=== PATIENT | male | born 1950 | race African-American/Black ===

== ENCOUNTER 2018-06-21 09:06 | Outpatient (CLI) | payer MEDICARE, SELFPAY ==
--- NOTE | 2018-06-21 11:06 | PRG ---
DATE OF SERVICE: 06/21/2018 CHIEF COMPLAINT: Bilateral foot wounds. HISTORY OF PRESENT ILLNESS: A 67-year-old male who presents today with wounds on bilateral lateral feet started about 4 weeks ago. He states that they started after wearing some rubber boots that rubbed abrasions on the side of his foot and feels that continued use of shoes has preventing the wound from healing. Has been applying mupirocin ointment and leaving open to the air. PAST MEDICAL HISTORY/PAST SURGICAL HISTORY/MEDICATIONS/ ALLERGIES/SOCIAL HISTORY /FAMILY HISTORY: Reviewed and is documented in his paper clinic chart. These were reviewed and deemed accurate. PHYSICAL EXAMINATION: VITAL SIGNS: Temperature 97.7, pulse 68, respirations 20, blood pressure 141/ 68. VASCULAR: Dorsalis pedis and posterior tibial pulses are faintly palpable. Skin temperature is cool to the touch. Sluggish capillary fill time to the toes. DERMATOLOGICAL EXAM: On the right foot lateral fifth metatarsal, there is a full thickness wound measuring 2 cm x 5.5 cm x 0.1 cm. It is 50% slough, 50% granulation tissue. There is scant serous drainage, no odor, no periwound erythema, edema, or warmth. In the left lateral foot there is a small ulceration 1 x 1.5 cm x 0.1 cm, 50% slough, 50% granulation tissue, scant serous drainage, no malodor, no periwound erythema, edema or warmth. 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 PLAN: 1. Full thickness debridement of subcutaneous tissue layer removing all nonviable tissue and biofilm from the wound base down to a bleeding granular wound base. The patient tolerated the procedure well. 2. Start him on collagen dressing changes on a daily basis with secondary gauze and tape bandage. 3. He has had his circulation checked recently with noninvasive vascular testing and he was told that his blood flow was deemed adequate for healing purposes. 4. The patient will follow up with me in 1 week. ATIF
== END 2018-06-21 09:07 | disposition home or self-care (01) ==
LOC: WCC 09:06
PROVIDERS: ATTEND Podiatrist Foot & Ankle Surgery
DX: L97.529 Non-pressure chronic ulcer of other part of left foot with unspecified severity (principal); L97.519 Non-pressure chronic ulcer of other part of right foot with unspecified severity; S90.812D Abrasion, left foot, subsequent encounter; S90.811D Abrasion, right foot, subsequent encounter
CPT/HCPCS: 11042; 99203; G0463

== ENCOUNTER 2018-07-05 09:14 | Outpatient (CLI) | payer MEDICARE ==
--- NOTE | 2018-07-05 12:28 | PRG ---
DATE OF SERVICE: 07/05/2018 SUBJECTIVE: A 67-year-old male returns today for followup of bilateral lateral foot wounds. No acut e events since last visit. He presented today with the right foot being open to air and left foot wi th a Band-Aid and he had been putting some Triple Antibiotic ointment and has not received his dressi ng supplies. PHYSICAL EXAMINATION: Ulceration of the right lateral foot measuring 2 cm x 6.5 cm x 0.1 cm, it is 5 0% slough, 50% granulation tissue and covered in biofilm. No malodor, no periwound erythema, edema o r warmth. Left foot lateral midfoot measures 1.5 cm x 5 cm x 0.1 cm, 50% slough, 50% granulation tis sheron. No malodor. No periwound erythema, edema or warmth. ASSESSMENT: Non-pressure chronic ulcerations to bilateral mid feet on the lateral aspect of the foot . PLAN: Full thickness debridement subcutaneous tissue layer removing all nonviable tissue and biofilm from the wound base today. Sending some tissue samples for culture and sensitivity to rule out bact erial colonization and determine if there is some topical antibiotics we can use to help prevent thi s. The wounds appear moist today, so we want to start drying them. We are going to start using a si lver alginate dressing on him. The patient will return in 1 week for followup.
[2018-07-05] MEDS ORDERED: Sodium Chloride 0.9% 15 ML NEB ONE (15:44)
== END 2018-07-05 09:15 | disposition home or self-care (01) ==
LOC: WCC 09:14
PROVIDERS: ATTEND Podiatrist Foot & Ankle Surgery
DX: L97.529 Non-pressure chronic ulcer of other part of left foot with unspecified severity (principal); L97.519 Non-pressure chronic ulcer of other part of right foot with unspecified severity
CPT/HCPCS: 87070; 87077; 87205; A4218

== ENCOUNTER 2018-07-12 09:29 | Outpatient (CLI) | payer MEDICARE ==
--- NOTE | 2018-07-12 10:47 | PRG ---
DATE OF SERVICE: 07/12/2018 SUBJECTIVE: This 57-year-old male returns today for followup of bilateral lateral foot wounds. He h as been using Promogran and a large Band-Aid daily. PHYSICAL EXAMINATION: Right lateral foot measures 2 cm x 6 cm x 0.1 cm, 80% epithelium, 20% granula tion tissue with an immense amount of biofilm on the wound surface. Left foot lateral wound measures 1 cm x 4 cm x 0.1 cm, 25% slough 75% epithelium, a large amount of dense biofilm on the wound surfac e. Minimal serosanguineous drainage. No periwound erythema, edema or warmth. ASSESSMENT: Non-pressure chronic ulceration bilateral feet. PLAN: 1. Full thickness debridement of subcutaneous tissue layer removing all nonviable tissue and biofilm from the wound bases down to a bleeding granular wound base. Bandage was reapplied with Promogran a nd gauze dressings. 2. Going to order the patient anti-infective antibiotic foot bath from [facility] for him to do twice daily. He also continue changing dressing with Promogran every day. He will follow up with me in 2 weeks.
[2018-07-12] MEDS ORDERED: Sodium Chloride 0.9% 15 ML NEB ONE (18:36)
== END 2018-07-12 09:30 | disposition home or self-care (01) ==
LOC: WCC 09:29
PROVIDERS: ATTEND Podiatrist Foot & Ankle Surgery
DX: L97.529 Non-pressure chronic ulcer of other part of left foot with unspecified severity (principal); L97.519 Non-pressure chronic ulcer of other part of right foot with unspecified severity
CPT/HCPCS: 11042; A4218

== ENCOUNTER 2018-07-26 10:04 | Outpatient (CLI) | payer MEDICARE ==
[~2018-07-26 10:04] MED LIST: Sodium Chloride 0.9% 15 ML NEB ONE
--- NOTE | 2018-07-26 23:44 | PRG ---
DATE OF SERVICE: 07/26/2018 WOUND CLINIC NOTE SUBJECTIVE: A 67-year-old male returns today for followup of bilateral lateral foot wounds, just received his foot soaks on Sunday and has just started using them. Has been using Promogran dressing changes on a daily basis. No acute events since last visit. OBJECTIVE: Wounds persist measuring 5.5 cm x 1.5 cm on the left foot and 6.5 cm x 2 cm on the right foot. These are covered in a thick biofilm like covering. There is about 50% granulation tissue, 50% slough. No periwound erythema, edema, or warmth. ASSESSMENT: Non-pressure chronic ulcerations to bilateral feet. PLAN: 1. Full-thickness debridement of the subcutaneous tissue layer, removing all nonviable tissue and biofilm from the wound base down to bleeding glanular wound base. 2. We would like him to continue with the foot soaks on a daily basis and daily Promogran dressing changes. 3. These wounds have a strange appearance and they are not responding the way that I would expect. I am going to refer him to computer console operator for further evaluation. He will follow up with me in 2 weeks. Job ID: [id number]
== END 2018-07-26 10:05 | disposition home or self-care (01) ==
LOC: WCC 10:04
PROVIDERS: ATTEND Podiatrist Foot & Ankle Surgery
DX: L97.529 Non-pressure chronic ulcer of other part of left foot with unspecified severity (principal); L97.519 Non-pressure chronic ulcer of other part of right foot with unspecified severity
CPT/HCPCS: A4218

== ENCOUNTER 2018-08-09 09:37 | Outpatient (CLI) | payer MEDICARE ==
--- NOTE | 2018-08-09 15:19 | HP ---
WOUND CLINIC NOTE SUBJECTIVE: A 67-year-old male returns today for bilateral lateral foot skin lesions. The patient presents today with wounds open to the air and no bandages applied. He states he has been doing his foot soaks and using the Aquacel Ag. He has not received his Dermatology appointment. We did contact them and get that appointment set today, said they were unable to get whole of them on his home number. PHYSICAL EXAMINATION: EXTREMITIES: Left foot lateral wound measured 1 cm x 5 cm x 0.1 cm, 75% epithelium and 25% granulation tissue. Some scant serous drainage. No malodor. Appears similar in appearance to last week. Right foot wound does appear improved, measuring 1 cm x 6 cm x 0.1 cm, 50% granulation tissue, 50% epithelium. ASSESSMENT: Non-pressure chronic ulcerations to the lateral feet/unknown skin lesion. PLAN: I am going to continue with treatment plan today. I am trying to use a different alginate to see if we can absorb some more moisture from the wounds. Still I would like to have some clarification as to what this could be caused by and so want him to keep his Dermatology appointment. Job ID: [id number]
== END 2018-08-09 09:38 | disposition home or self-care (01) ==
LOC: WCC 09:37
PROVIDERS: ATTEND Podiatrist Foot & Ankle Surgery
DX: L97.529 Non-pressure chronic ulcer of other part of left foot with unspecified severity (principal)
CPT/HCPCS: A4218

== ENCOUNTER 2018-08-16 09:54 | Outpatient (CLI) | payer MEDICARE ==
--- NOTE | 2018-08-16 17:20 | PRG ---
DATE OF SERVICE: 08/16/2018 SUBJECTIVE: A 68-year-old male returns today for followup of bilateral foot skin lesions. This is relatively unchanged from last week. He denies any acute events. No nausea, vomiting, fevers, or chills. OBJECTIVE: Lesions remain hyperkeratotic in nature with some hypergranulation measuring 2 cm x 7.3 cm x 0.1 cm on the right, 1.8 x 9.2 x 0.1 on the left. Less macerated and less moist on this visit. No periwound erythema, edema, or warmth. ASSESSMENT: Non-pressure chronic ulcerations, limited breakdown of the skin, and unknown skin lesions to bilateral feet. PLAN: I am still little unclear on the etiology of these lesions. We are waiting for him to have his appointment with Dermatology to get a better diagnosis. I will have him follow up with me after his appointment with the video operator unless he has any problems before that time. Job ID: [id number]
== END 2018-08-16 09:55 | disposition home or self-care (01) ==
LOC: WCC 09:54
PROVIDERS: ATTEND Podiatrist Foot & Ankle Surgery
DX: L97.511 Non-pressure chronic ulcer of other part of right foot limited to breakdown of skin (principal); L97.521 Non-pressure chronic ulcer of other part of left foot limited to breakdown of skin; L98.9 Disorder of the skin and subcutaneous tissue, unspecified

== ENCOUNTER 2020-11-08 09:51 | Outpatient (CLI) | payer MEDICARE ==
[2020-11-09 01:26] LABS: SARS-CoV-2 PCR by NAA Not Detected (NotDetected)
== END 2020-11-08 09:52 | disposition home or self-care (01) ==
LOC: LABBT 09:51
PROVIDERS: ATTEND Internal Medicine Gastroenterology
DX: Z20.822 Contact with and (suspected) exposure to COVID-19 (principal)
CPT/HCPCS: U0003; U0005; 87635

== ENCOUNTER 2020-12-07 12:01 | Outpatient (CLI) | payer MEDICARE ==
[2020-12-08 01:19] LABS: SARS-CoV-2 PCR by NAA Not Detected (NotDetected)
== END 2020-12-07 12:02 | disposition home or self-care (01) ==
LOC: LABBT 12:01
PROVIDERS: ATTEND Internal Medicine Gastroenterology
DX: Z01.812 Encounter for preprocedural laboratory examination (principal); Z12.11 Encounter for screening for malignant neoplasm of colon; I82.409 Acute embolism and thrombosis of unspecified deep veins of unspecified lower extremity; R14.0 Abdominal distension (gaseous); E66.9 Obesity, unspecified; G47.30 Sleep apnea, unspecified; N18.9 Chronic kidney disease, unspecified; Z79.01 Long term (current) use of anticoagulants
CPT/HCPCS: U0003; U0005; 87635

== ENCOUNTER 2020-12-10 05:55 | Day surgery (SDC) | payer MEDICARE ==
[2020-12-09 10:07] VITALS: BMI 49.6
[2020-12-10] MEDS ORDERED: Lidocaine 1% PF 5 ML VIAL ONE (07:45)
[2020-12-10] MEDS ORDERED: PROPOFOL 200 MG/20 ML VIAL ONE (07:45)
[2020-12-10] MEDS ORDERED: EPINEPHrine 1 MG/10 ML Abboject SYRINGE ONE (07:45)
== END 2020-12-10 11:12 | disposition home or self-care (01) ==
LOC: SDC 05:55
PROVIDERS: ATTEND Internal Medicine Gastroenterology
PROC: 0DB58ZX Excision of Esophagus, Via Natural or Artificial Opening Endoscopic, Diagnostic (ICD-10-PCS; principal; 2020-12-10)
PROC: 0DBM8ZX Excision of Descending Colon, Via Natural or Artificial Opening Endoscopic, Diagnostic (ICD-10-PCS; 2020-12-10)
PROC: 0DBL8ZX Excision of Transverse Colon, Via Natural or Artificial Opening Endoscopic, Diagnostic (ICD-10-PCS; 2020-12-10)
PROC: 0DBN8ZX Excision of Sigmoid Colon, Via Natural or Artificial Opening Endoscopic, Diagnostic (ICD-10-PCS; 2020-12-10)
DX: Z12.11 Encounter for screening for malignant neoplasm of colon (principal); D12.3 Benign neoplasm of transverse colon; D12.4 Benign neoplasm of descending colon; D12.5 Benign neoplasm of sigmoid colon; D01.0 Carcinoma in situ of colon; K57.30 Diverticulosis of large intestine without perforation or abscess without bleeding; K29.50 Unspecified chronic gastritis without bleeding; K44.9 Diaphragmatic hernia without obstruction or gangrene; B96.81 Helicobacter pylori [H. pylori] as the cause of diseases classified elsewhere; K64.9 Unspecified hemorrhoids; K64.8 Other hemorrhoids
CPT/HCPCS: 88305; J0171; J2704

== ENCOUNTER 2021-01-28 11:51 | Outpatient (CLI) | payer MEDICARE ==
[2021-01-28 13:30] LABS: #Eosinphils 0.3 10x3/uL (0.0-0.5); #Monocytes 0.7 10x3/uL (0.0-1.1); #Neutrophils 3.3 10x3/uL (1.5-8.4); %Basophils 0.5 % (0.0-2.0); %Eosinophils 4.4 % (0.0-6.0); %Lymphocytes 29.2 % (18.0-47.0); %Monocytes 11.6 % (0.0-10.0); Hemoglobin 12.8 g/dL (13.5-17.5); Mean Corpuscular Hemoglobin 28.4 pg (27.0-33.0); Mean Corpuscular Volume 88.7 fl (81.2-95.1); Mean Platelet Volume 9.2 fl (7.4-10.4); Platelet Count 208 10x3/uL (150-450); RBC Distribution Width 13.3 % (11.5-14.5); Red Blood Cell (RBC) Count 4.51 10x6/uL (4.32-5.72); White Blood Cell (WBC) Count 6.2 10x3/uL (3.5-10.5)
[2021-01-28 13:47] LABS: ALT (SGPT) 13 U/L (8-55); AST (SGOT) 14 U/L (5-34); Albumin 3.7 g/dL (3.4-4.8); Alkaline Phosphatase 71 U/L (40-110); Anion Gap 8 mmol/L (10-20); BUN (Urea Nitrogen) 10 mg/dL (8.4-25.7); Bilirubin, Total 0.7 mg/dL (0.2-1.2); Calc. Creatinine Clearance 0 mL/min (70-130); Calcium 9.1 mg/dL (7.8-10.44); Carbon Dioxide 29 mmol/L (23-31); Chloride 110 mmol/L (98-107); Globulin 3.2 g/dL (2.4-3.5); Glucose 100 mg/dL (83-110); Protein, Total 6.9 g/dL (5.8-8.1); Sodium 143 mmol/L (136-145)
[2021-01-28 16:31] LABS: Hemoglobin A1c 5.9 % (4.0-6.0)
[2021-01-28 20:45] LABS: SARS-CoV-2 PCR by NAA Not Detected (NotDetected)
== END 2021-01-28 11:52 | disposition home or self-care (01) ==
LOC: LABBT 11:51
PROVIDERS: ATTEND Specialist
DX: Z01.818 Encounter for other preprocedural examination (principal); C18.9 Malignant neoplasm of colon, unspecified; N18.9 Chronic kidney disease, unspecified; G47.30 Sleep apnea, unspecified; I48.0 Paroxysmal atrial fibrillation; E66.01 Morbid (severe) obesity due to excess calories; N28.89 Other specified disorders of kidney and ureter; Z79.01 Long term (current) use of anticoagulants
CPT/HCPCS: 71046; 80053; 82378; 83036; 85025; U0003; U0005

== ENCOUNTER 2021-01-28 12:15 | Inpatient (IN) | payer MEDICARE ==
[2021-02-02] MEDS ORDERED: Bupivacaine PF 0.5% 30 ML VIAL ONE (06:32)
[2021-02-02] MEDS ORDERED: Lidocaine 1% w/Epinephrine 1:100K 20 ML VIAL ONE (06:32)
[2021-02-02] MEDS ORDERED: Fentanyl 100 MCG/2 ML VIAL ONE ×3 (06:42→12:54)
[2021-02-02] MEDS ORDERED: Lidocaine 2% Jelly 5 ML TUBE ONE (06:43)
[2021-02-02] MEDS ORDERED: Bupivacaine 0.25% HCL 30 ML VIAL ONE (06:44)
[2021-02-02] MEDS ORDERED: Midazolam HCl 2 mg/2 ml Vial ONE (06:56)
[2021-02-02] MEDS ORDERED: Gabapentin 300 MG CAP ONE (07:00)
[2021-02-02] MEDS ORDERED: Ketorolac Tromethamine 30 MG/ML VIAL ONE (07:25)
[2021-02-02] MEDS ORDERED: Lidocaine 1% (PF) 30 ML VIAL ONE (07:36)
[2021-02-02] MEDS ORDERED: Meropenem 2 GM in Sodium Chloride 0.9% 100 ML IVPB SCH (07:45)
[2021-02-02] MEDS ORDERED: PROPOFOL 200 MG/20 ML VIAL ONE (08:20)
[2021-02-02] MEDS ORDERED: Dexamethasone 20 MG/5 ML VIAL ONE (08:20)
[2021-02-02] MEDS ORDERED: Bupivacaine HCl 0.5%/Epinephrine 1:200,000/PF 30 ml Vial ONE (08:20)
[2021-02-02] MEDS ORDERED: Glycopyrrolate 0.2 MG/ML 5 ML SYRINGE ONE (08:20)
[2021-02-02] MEDS ORDERED: Rocuronium Bromide 10 MG/ML (10ML VIAL) ONE (08:20)
[2021-02-02] MEDS ORDERED: Lidocaine 1% PF 5 ML VIAL ONE (08:20)
[2021-02-02] MEDS ORDERED: Ondansetron PF 4 MG/2 ML Vial ONE (08:20)
[2021-02-02] MEDS ORDERED: ePHEDrine 50 MG/ML VIAL ONE (08:20)
[2021-02-02] MEDS ORDERED: Promethazine HCl 25 MG/ML VIAL SLOW IVP PRN (11:55)
[2021-02-02] MEDS ORDERED: Promethazine HCl 25 MG/ML VIAL IM PRN ×2 (11:55→14:41)
[2021-02-02] MEDS ORDERED: Ondansetron HCl/PF 4 MG/2 ML Vial IVP PRN (11:55)
[2021-02-02] MEDS ORDERED: Ondansetron PF 4 MG/2 ML Vial IVP PRN ×2 (12:24→14:41)
[2021-02-02] MEDS ORDERED: hydrALAZINE 20 MG/ML VIAL SLOW IVP PRN (12:24)
[2021-02-02] MEDS ORDERED: Morphine 4 MG/ML VIAL SLOW IVP PRN ×2 (12:24→12:34)
[2021-02-02] MEDS ORDERED: Morphine 2 MG/ML VIAL SLOW IVP PRN (12:24)
[2021-02-02] MEDS ORDERED: hydrALAZINE 20 MG/ML VIAL ONE (12:53)
[2021-02-02] MEDS ORDERED: diphenhydrAMINE 50 MG/ML VIAL IM PRN (14:41)
[2021-02-02] MEDS ORDERED: diphenhydrAMINE 50 MG/ML VIAL IVP PRN (14:41)
[2021-02-02] MEDS ORDERED: Naloxone HCl 0.4 mg/ml Vial IV PRN (14:41)
[2021-02-02] MEDS ORDERED: diphenhydrAMINE 25 MG CAP PO PRN (14:41)
[2021-02-02] MEDS ORDERED: Zolpidem Tartrate 5 MG TAB PO PRN (14:41)
[2021-02-02] MEDS ORDERED: fentaNYL Citrate/PF 2,000 MCG in Sodium Chloride 0.9% 60 ML IV PRN (14:41)
[2021-02-02] MEDS ORDERED: Communication Order-Pharmacy FS SCH (14:45)
[2021-02-02 15:38] VITALS: BMI 46.2
[2021-02-02] MEDS: Sodium Chloride 0.45% 1,000 ML IV SCH ×2 (15:46→22:14)
[2021-02-02] MEDS: Gabapentin 300 MG CAP PO SCH ×2 (15:47→19:58)
[2021-02-02] MEDS: cefOXitin Sodium/Dextrose,Iso 2 GM in Premix Bag 1 BAG IVPB SCH ×2 (15:53→22:09)
[2021-02-02] MEDS: Ketorolac Tromethamine 30 MG/ML VIAL IVP SCH (17:29)
[2021-02-02] MEDS: Losartan 25 MG TAB PO SCH (19:56)
[2021-02-02] MEDS: Carvedilol 25 MG TAB PO SCH (19:56)
[2021-02-02] MEDS: Enoxaparin Sodium 40 MG/0.4 ML SYRINGE SC SCH (19:56)
[2021-02-02] MEDS: Famotidine/PF 20 mg/2ml Vial SLOW IVP SCH (19:58)
[2021-02-02] MEDS: Famotidine 20 MG TAB PO SCH (19:59)
[2021-02-03] MEDS: Ketorolac Tromethamine 30 MG/ML VIAL IVP SCH ×4 (00:55→17:09)
[2021-02-03] MEDS: Sodium Chloride 0.45% 1,000 ML IV SCH ×3 (05:39→20:44)
[2021-02-03 05:55] LABS: #Lymphocytes 1.2 thou/uL (1.20-3.40); #Monocytes 1.3 thou/uL (0.11-0.59); #Neutrophils 11.4 thou/uL (1.40-6.50); %Lymphocytes 8.7 % (21.0-51.0); %Monocytes 9.4 % (0.0-10.0); %Neutrophils 81.9 % (42.0-75.0); Hemoglobin 12.5 g/dL (14.0-18.0); Mean Corpuscular HGB CONC 32.8 g/dL (32.0-36.0); Mean Corpuscular Hemoglobin 29.8 pg (27.0-31.0); Mean Corpuscular Volume 90.7 fL (78.0-98.0); Mean Platelet Volume 6.9 fL (7.4-10.4); Platelet Count 201 thou/uL (130-400); RBC Distribution Width 12.7 % (11.5-14.5); Red Blood Cell (RBC) Count 4.21 mill/uL (4.70-6.10)
[2021-02-03 06:15] LABS: Anion Gap 10 mmol/L (10-20); BUN (Urea Nitrogen) 14 mg/dL (8.4-25.7); Calc. Creatinine Clearance 101 mL/min (70-130); Calcium 8.6 mg/dL (7.8-10.44); Carbon Dioxide 23 mmol/L (23-31); Chloride 110 mmol/L (98-107); Glucose 116 mg/dL (83-110); Potassium 3.9 mmol/L (3.5-5.1); Sodium 139 mmol/L (136-145)
[2021-02-03] MEDS: Gabapentin 300 MG CAP PO SCH ×3 (08:17→20:46)
[2021-02-03] MEDS: Carvedilol 25 MG TAB PO SCH ×2 (08:17→20:46)
[2021-02-03] MEDS: Famotidine 20 MG TAB PO SCH ×2 (08:17→20:46)
[2021-02-03] MEDS: Famotidine/PF 20 mg/2ml Vial SLOW IVP SCH (08:19)
[2021-02-03] MEDS ORDERED: traMADol HCl 50 MG TAB PO PRN (18:47)
[2021-02-03] MEDS: Acetaminophen 500 MG TAB PO SCH (20:45)
[2021-02-03] MEDS: Losartan 25 MG TAB PO SCH (20:46)
[2021-02-03] MEDS: Enoxaparin Sodium 40 MG/0.4 ML SYRINGE SC SCH (20:46)
[2021-02-04] MEDS: Ketorolac Tromethamine 30 MG/ML VIAL IVP SCH ×5 (00:07→23:23)
[2021-02-04] MEDS: Acetaminophen 500 MG TAB PO SCH ×4 (00:08→20:16)
[2021-02-04 06:04] LABS: Anion Gap 9 mmol/L (10-20); BUN (Urea Nitrogen) 18 mg/dL (8.4-25.7); Calc. Creatinine Clearance 102 mL/min (70-130); Calcium 7.9 mg/dL (7.8-10.44); Carbon Dioxide 26 mmol/L (23-31); Chloride 108 mmol/L (98-107); Glucose 122 mg/dL (83-110); Potassium 3.6 mmol/L (3.5-5.1); Sodium 139 mmol/L (136-145)
[2021-02-04] MEDS: Sodium Chloride 0.45% 1,000 ML IV SCH (07:38)
[2021-02-04] MEDS: Gabapentin 300 MG CAP PO SCH ×3 (09:12→20:17)
[2021-02-04] MEDS: Carvedilol 25 MG TAB PO SCH ×2 (09:12→20:18)
[2021-02-04] MEDS: Famotidine 20 MG TAB PO SCH ×2 (09:12→20:18)
[2021-02-04] MEDS: Rivaroxaban 10 MG TAB PO SCH (17:30)
[2021-02-04] MEDS: Atorvastatin Calcium 10 MG TAB PO SCH (20:17)
[2021-02-04] MEDS: Losartan 25 MG TAB PO SCH (20:18)
[2021-02-05] MEDS: Acetaminophen 500 MG TAB PO SCH ×4 (01:49→18:25)
[2021-02-05] MEDS: Ketorolac Tromethamine 30 MG/ML VIAL IVP SCH ×3 (06:12→16:47)
[2021-02-05] MEDS: Gabapentin 300 MG CAP PO SCH ×3 (08:50→20:15)
[2021-02-05] MEDS: Famotidine 20 MG TAB PO SCH ×2 (08:50→20:16)
[2021-02-05] MEDS: Carvedilol 25 MG TAB PO SCH ×2 (08:50→20:16)
[2021-02-05] MEDS: Rivaroxaban 10 MG TAB PO SCH (16:46)
[2021-02-05] MEDS: Losartan 25 MG TAB PO SCH (20:15)
[2021-02-05] MEDS: Atorvastatin Calcium 10 MG TAB PO SCH (20:16)
[2021-02-06] MEDS: Acetaminophen 500 MG TAB PO SCH ×4 (00:25→16:38)
[2021-02-06 05:17] LABS: Hemoglobin 11.8 g/dL (14.0-18.0); Platelet Count 207 thou/uL (130-400)
[2021-02-06] MEDS: Gabapentin 300 MG CAP PO SCH ×2 (08:11→16:37)
[2021-02-06] MEDS: Famotidine 20 MG TAB PO SCH (08:11)
[2021-02-06] MEDS: Carvedilol 25 MG TAB PO SCH (08:11)
[2021-02-06] MEDS: Rivaroxaban 10 MG TAB PO SCH (16:36)
[2021-02-06 17:37] VITALS: BP 150/81; TEMP 97.6
== END 2021-02-06 17:20 | disposition home or self-care (01) | DRG 330 ==
LOC: SURG A 02-02 06:02 → EDSTATUS 02-02 12:00 → SURG A 02-02 15:20
PROVIDERS: ADMIT Specialist; ATTEND Specialist
PROC: 0DBN0ZZ Excision of Sigmoid Colon, Open Approach (ICD-10-PCS; principal; 2021-02-02)
PROC: 0DJD4ZZ Inspection of Lower Intestinal Tract, Percutaneous Endoscopic Approach (ICD-10-PCS; 2021-02-02)
PROC: 3E0M05Z Introduction of Adhesion Barrier into Peritoneal Cavity, Open Approach (ICD-10-PCS; 2021-02-02)
PROC: 3E0T3BZ Introduction of Anesthetic Agent into Peripheral Nerves and Plexi, Percutaneous Approach (ICD-10-PCS; 2021-02-02)
DX: D01.0 Carcinoma in situ of colon (principal); Z68.42 Body mass index [BMI] 45.0-49.9, adult; N18.9 Chronic kidney disease, unspecified; G47.30 Sleep apnea, unspecified; Z20.822 Contact with and (suspected) exposure to COVID-19; I48.0 Paroxysmal atrial fibrillation; E66.01 Morbid (severe) obesity due to excess calories; N28.89 Other specified disorders of kidney and ureter; D12.5 Benign neoplasm of sigmoid colon; M19.90 Unspecified osteoarthritis, unspecified site; Z79.01 Long term (current) use of anticoagulants; Z79.899 Other long term (current) drug therapy; Z53.31 Laparoscopic surgical procedure converted to open procedure
CPT/HCPCS: 36415; 36416; 80048; 82565; 85014; 85018; 85025; 85049; 88307; J0360; J0694; J1100; J1650; J1885; J2001; J2250; J2405; J2704; J3010; J3490; S0020; S0028